=== PATIENT | male | born 1970 | race Caucasian/White ===

== ENCOUNTER 2021-07-08 18:53 | Emergency (ER) | payer BC ==
[~2021-07-08] VITALS: Ht 180.3 cm; Wt 94.3 kg
[2021-07-08 19:18] LABS: *BILIRUBIN,URIN NEGATIVE (NEGATIVE); *CLARITY,URINE CLEAR (CLEAR); *COLOR,URINE YELLOW (YELLOW); *KETONES,URINE 3+ (NEGATIVE); *UROBILINOGEN,URINE 0.2 E.U./dl (NORMAL); LEUKOCYTE ESTERASE ,URINE NEGATIVE (NEGATIVE); NITRITE, URINE NEGATIVE (NEGATIVE); PH,URINE 6.5 (5.0-8.0); UGLUCOSE NEGATIVE (NEGATIVE)
[2021-07-08 19:21] LABS: *BLOOD, URINE TRACE (NEGATIVE)
--- NOTE | 2021-07-08 19:30 | NUR ---
Assumed care of patient from day shift nurse. Patient arrived in the ER with complain of intermittent right flank pain. Patient [id number].
--- NOTE | 2021-07-08 19:36 | NUR ---
Dr. Whittaker at bedside for MSE.
[2021-07-08 19:46] LABS: BACTERIA,URINE NONE SEEN /HPF (NONE SEEN); RBC,URINE 0-3 /HPF (0-3); WBC,URINE 0-3 /HPF (0-3)
[2021-07-08 19:59] LABS: HEMATOCRIT 46.7 % (36.7-47.1); MEAN CORPUSCULAR HEMOGLOBIN 30.3 uug (23.8-33.4); MEAN CORPUSCULAR VOLUME 86.7 fL (73.0-96.2); PLATELET COUNT (AUTO) 209 K/uL (152-348)
[2021-07-08 20:12] LABS: BILIRUBIN,DIRECT 0.3 mg/dL (0.0-0.2); BILIRUBIN,TOTAL 1.9 mg/dL (0.2-1.0); CREATININE 0.7 mg/dL (0.6-1.3); POTASSIUM 3.9 mmol/L (3.5-5.1)
[2021-07-08] MEDS ORDERED: IOHEXOL 300MG/ML 100 ML INFUS..BTL ONE (20:12)
[2021-07-08] MEDS ORDERED: SWABABLE VALVE TRANSFER SET EA MC ONE (20:12)
[2021-07-08] MEDS ORDERED: IV NORMAL SALINE 250 ML IV ONE (20:12)
--- NOTE | 2021-07-08 20:40 | NUR ---
Back from CT.
[2021-07-08] MEDS ORDERED: KETOROLAC TROMETHAMINE 30 MG INJ IVP ONE (21:15)
--- NOTE | 2021-07-08 21:33 | NUR ---
Toradol 30mg IV discontinued per Dr Whittaker. Patient pain on right flank area 4/10 as is tolerable at this time.
[2021-07-08] MEDS ORDERED: KETOROLAC TROMETHAMINE 30 MG INJ ONE (21:36)
[2021-07-08] MEDS ORDERED: OXYC-128 PO (22:10)
--- NOTE | 2021-07-08 23:00 | NUR ---
Patient discharged to home in stable condition. Written and verbal after care instructions given. Patient verbalizes understanding of instructions. Stressed follow up or return to ER for worsening s/s. Patient ambulated fr the ER with steady gait. All belongings with patient.
[2021-07-08 23:09] VITALS: BP 145/74
== END 2021-07-08 23:00 | disposition home or self-care (01) ==
LOC: EDSEX 18:55 → ER 18:55
DX: S39.012A Strain of muscle, fascia and tendon of lower back, initial encounter (principal); X58.XXXA Exposure to other specified factors, initial encounter; Y92.89 Other specified places as the place of occurrence of the external cause; K76.0 Fatty (change of) liver, not elsewhere classified; I10 Essential (primary) hypertension; F17.290 Nicotine dependence, other tobacco product, uncomplicated; E78.00 Pure hypercholesterolemia, unspecified; Z79.899 Other long term (current) drug therapy
CPT/HCPCS: 36415; 74178; 76705; 80048; 80076; 81001; 83735; 84550; 85025; 99284; Q9967; A4663; J1885; J7050